=== PATIENT | male | born 1950 | race Two or more races ===

== ENCOUNTER 2017-03-09 07:18 | Outpatient (CLI) | payer OTHER | END 2017-03-09 07:27 | disposition home or self-care (01) | LOC: SONOGRAMA 07:18 | DX: R97.20 Elevated prostate specific antigen [PSA] (principal) ==

== ENCOUNTER 2017-03-23 07:22 | Outpatient (CLI) | payer OTHER | END 2017-03-23 07:35 | disposition home or self-care (01) | LOC: TOM 07:22 | DX: C61 Malignant neoplasm of prostate (principal) ==

== ENCOUNTER 2017-03-23 08:14 | Outpatient (CLI) | payer OTHER | END 2017-03-23 08:19 | disposition home or self-care (01) | LOC: NUCLEAR 08:14 | DX: C61 Malignant neoplasm of prostate (principal) | CPT/HCPCS: 78306; 78320; A9503 ==